=== PATIENT | male | born 1960 | race Caucasian/White ===

== ENCOUNTER 2020-11-18 17:33 | Inpatient (IN) | payer MEDICAID ==
[~2020-11-18] VITALS: Ht 165.1 cm; Wt 95.3 kg
--- NOTE | 2020-11-18 17:50 | NUR ---
Pt triaged and placed in [facility] as there are no ER beds available. Pt is unable to recall his home medications.
--- NOTE | 2020-11-18 18:33 | NUR ---
Pt moved to room 1a.
[2020-11-18] MEDS ORDERED: LORAZEPAM 0.5 MG TABLET PO ONE (19:00)
[2020-11-18] MEDS ORDERED: LORAZEPAM 1 MG TABLET ONE (19:09)
[2020-11-18 19:45] LABS: BASOPHILS % (AUTO) 0.5 % (0.0-2.0); EOSINOPHILS # (AUTO) 0.1 K/uL (0.0-0.7); EOSINOPHILS % (AUTO) 0.7 % (0.0-7.0); HEMATOCRIT 44.1 % (36.7-47.1); HEMOGLOBIN 14.7 g/dL (12.5-16.3); LYMPHOCYTES # (AUTO) 2.2 K/uL (20.0-40.0); LYMPHOCYTES % (AUTO) 24.2 % (20.5-51.5); MEAN CORPUSCULAR HEMOGLOBIN 30.4 uug (23.8-33.4); MEAN CORPUSCULAR HGB CONC 33 g/dL (32.5-36.3); MONOCYTES # (AUTO) 0.6 K/uL (2.0-10.0); MONOCYTES % (AUTO) 6.3 % (0.0-11.0); NEUTROPHILS # (AUTO) 6.3 K/uL (1.8-8.9); NEUTROPHILS % (AUTO) 68.3 % (38.5-71.5); PLATELET COUNT (AUTO) 253 K/uL (152-348); RED BLOOD CELL COUNT(AUTO) 4.85 MIL/uL (4.06-5.63); WHITE BLOOD COUNT (AUTO) 9.2 K/uL (3.6-10.2)
[2020-11-18] MEDS ORDERED: FUROSEMIDE 40 MG/4 ML VIAL IV ONE (19:45)
[2020-11-18 19:54] LABS: CREATININE 1.4 mg/dL (0.6-1.3); POTASSIUM 3.7 mmol/L (3.5-5.1)
--- NOTE | 2020-11-18 20:05 | NUR ---
Dr Hare into eval patient.
[2020-11-18 20:07] LABS: BILIRUBIN,DIRECT 0.2 mg/dL (0.0-0.2); TOTAL PROTEIN, SERUM 8.1 g/dL (6.4-8.2)
[2020-11-18] MEDS ORDERED: FUROSEMIDE 20 MG/2 ML VIAL ONE (20:12)
[2020-11-18] MEDS ORDERED: FUROSEMIDE 20 MG/2 ML VIAL IV ONE (20:15)
--- NOTE | 2020-11-18 20:24 | NUR ---
Analy Oconnor DRAG SEINER into eval patient.
[2020-11-18] MEDS ORDERED: POTASSIUM CHLORIDE 20 MEQ POWDER PACKET PO ONE (20:30)
[2020-11-18] MEDS ORDERED: POTASSIUM CHLORIDE 20 MEQ POWDER PACKET ONE (22:28)
--- NOTE | 2020-11-18 22:45 | NUR ---
[facility] gave authorization to stay in patient.
[2020-11-18] MEDS: APIXABAN 2.5 MG TABLET PO SCH (23:32)
[2020-11-18] MEDS ORDERED: NITROGLYCERIN 0.4 MG/TAB BOTTLE SL PRN (23:45)
--- NOTE | 2020-11-19 00:30 | NUR ---
Transfered to 3rd floor Tele via wheelchair with no distress noted.
--- NOTE | 2020-11-19 00:35 | NUR ---
ADMITTED PATIENT ON TELE FLOOR UNDER THE CARE OF [facility] [employer], PATIENT ALERT ORIENTED, WITH SOB, UNABLE TO LIE FLAT, PATIENT REFUSED OXYGEN THERAPY, AND REFUSED TO ANSWER QUESTION REGARDING MEDICAL HISTORY, IRRITABLE, AND PREFER TO BE LEFT ALONE. PATIENT ORIENTED TO USE THE CALL LIGHT WHEN HE NEEDS ANYTHING. PATIENT ON TELE MONITOR A FIB, AND TACHY 125. CONT TO MONITOR.
--- NOTE | 2020-11-19 02:24 | NUR ---
NOTIFY CESAR PHYSICIAN REQUESTING FOR SLEEPING MEDICATION WITH ORDER.
[2020-11-19] MEDS ORDERED: ZOLPIDEM 5 MG TABLET PO ONE (02:30)
--- NOTE | 2020-11-19 06:58 | NUR ---
PATIENT ALERT ORIENTED, NO CHEST PAIN, BUT SHORT OF BREATH, VS. 119/61, HR 71, OXYGEN SAT 95% ON ROOM AIR. PATIENT STATED ITS NO THE CHEST PAIN, BUT DIFFICULTY BREATHING DUE TO MILD CHF, ENCOURAGED TO STAY IN BED AND SEAT UPRIGHT. PATIENT ON TELE MONITOR A FIB, WITH EPISODE OF PVC. ENDORSED TO NEXT SHIFT.
[2020-11-19 07:03] LABS: BASOPHILS # (AUTO) 0.1 K/uL (0.0-8.0); BASOPHILS % (AUTO) 0.6 % (0.0-2.0); EOSINOPHILS # (AUTO) 0.1 K/uL (0.0-0.7); EOSINOPHILS % (AUTO) 0.9 % (0.0-7.0); HEMATOCRIT 41.8 % (36.7-47.1); HEMOGLOBIN 14.2 g/dL (12.5-16.3); LYMPHOCYTES # (AUTO) 2.5 K/uL (20.0-40.0); LYMPHOCYTES % (AUTO) 27.3 % (20.5-51.5); MEAN CORPUSCULAR HEMOGLOBIN 30.9 uug (23.8-33.4); MEAN CORPUSCULAR HGB CONC 34 g/dL (32.5-36.3); MEAN CORPUSCULAR VOLUME 91.2 fL (73.0-96.2); MONOCYTES # (AUTO) 0.6 K/uL (2.0-10.0); MONOCYTES % (AUTO) 6.2 % (0.0-11.0); PLATELET COUNT (AUTO) 229 K/uL (152-348); RED BLOOD CELL COUNT(AUTO) 4.58 MIL/uL (4.06-5.63); WHITE BLOOD COUNT (AUTO) 9.3 K/uL (3.6-10.2)
[2020-11-19 07:09] LABS: BILIRUBIN,TOTAL 1.5 mg/dL (0.2-1.0); CREATININE 1.5 mg/dL (0.6-1.3); MAGNESIUM 2.4 mg/dL (1.8-2.4); PHOSPHOROUS 3.2 mg/dL (2.5-4.9); POTASSIUM 3.9 mmol/L (3.5-5.1); TOTAL PROTEIN, SERUM 7.7 g/dL (6.4-8.2)
[2020-11-19 07:18] LABS: THYROID STIMULATING HORMONE 1.176 mIU/mL (0.358-3.740)
[2020-11-19] MEDS: APIXABAN 2.5 MG TABLET PO SCH (08:31)
--- NOTE | 2020-11-19 10:40 | NUR ---
SW Note: This SW met with patient to discuss treatment in the hospital. Patient appeared irritable and frustrated with his situation. This SW attempted to educate patient on his condition and refused to listen to this SW.
[2020-11-19] MEDS ORDERED: FUROSEMIDE 20 MG/2 ML VIAL IV ONE ×2 (11:00→12:00)
[2020-11-19 11:04] VITALS: BP 113/72
[2020-11-19] MEDS ORDERED: POTASSIUM CHLORIDE 20 MEQ POWDER PACKET PO ONE (11:45)
[2020-11-19] MEDS ORDERED: METOLAZONE 2.5 MG TABLET PO ONE (12:00)
[2020-11-19 15:19] VITALS: BP 127/67
[2020-11-19] MEDS ORDERED: APIX2.5T PO (16:38)
[2020-11-19] MEDS ORDERED: Nitroglycerin Sl SL (16:38)
--- NOTE | 2020-11-19 18:45 | NUR ---
VSS b/p 119/80 - hr 97 - r/a 93% o2 sat pt non sob. pt comfortable. 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 Pt verbalized understanding. Call light is within reach. Pt agreeable to go home. Discharge instructions given verbalized understanding.
== END 2020-11-19 19:30 | disposition home or self-care (01) | DRG 194 ==
LOC: ER 17:33 → TELE3 23:22
PROVIDERS: ADMIT Registered Nurse; ATTEND Registered Nurse
DX: I50.23 Acute on chronic systolic (congestive) heart failure (principal); I42.0 Dilated cardiomyopathy; I48.20 Chronic atrial fibrillation, unspecified; E66.01 Morbid (severe) obesity due to excess calories; N18.9 Chronic kidney disease, unspecified; F17.210 Nicotine dependence, cigarettes, uncomplicated; Z79.01 Long term (current) use of anticoagulants; Z91.19 Patient's noncompliance with other medical treatment and regimen; Z68.34 Body mass index [BMI] 34.0-34.9, adult; Z71.3 Dietary counseling and surveillance; Z71.6 Tobacco abuse counseling; N17.0 Acute kidney failure with tubular necrosis; N13.9 Obstructive and reflux uropathy, unspecified
CPT/HCPCS: 36415; 70030-TC; 71045; 83735; 84100; 84443; 85025; 85730; 93005; 93307; A4663; G0378; J1940; U0003

== ENCOUNTER 2022-03-19 23:03 | Emergency (ER) | payer MEDICAID ==
[~2022-03-19] VITALS: Ht 162.6 cm; Wt 93.0 kg
[~2022-03-19 23:03] MED LIST: APIX2.5T PO; Nitroglycerin Sl SL
--- NOTE | 2022-03-19 23:19 | NUR ---
Dr. Hammond at bedside for MSE
[2022-03-19] MEDS ORDERED: FURO40TA5 PO (23:44)
[2022-03-19] MEDS ORDERED: LORA-259 PO (23:44)
[2022-03-19] MEDS ORDERED: SACU1TAB PO (23:44)
[2022-03-19] MEDS ORDERED: CARV3.12 PO (23:44)
[2022-03-19] MEDS ORDERED: APIX5TAB PO (23:44)
[2022-03-19] MEDS ORDERED: FUROSEMIDE 20 MG/2 ML VIAL IVP ONE (23:45)
[2022-03-19] MEDS ORDERED: FUROSEMIDE 40 MG/4 ML VIAL ONE (23:50)
[2022-03-20] LABS: HEMATOCRIT 39.4 % (36.7-47.1); MEAN CORPUSCULAR HEMOGLOBIN 30.3 uug (23.8-33.4); MEAN CORPUSCULAR VOLUME 87.6 fL (73.0-96.2); PLATELET COUNT (AUTO) 233 K/uL (152-348)
[2022-03-20 00:03] LABS: CARBON DIOXIDE 30 mmol/L (21-32); CHLORIDE 107 mmol/L (98-107); CREATININE 1.6 mg/dL (0.6-1.3); GLUCOSE 131 mg/dL (74-106); POTASSIUM 4.2 mmol/L (3.5-5.1); UREA NITROGEN, BLOOD 23 mg/dL (7-18)
[2022-03-20 00:16] LABS: ALANINE AMINOTRANSFERASE 19 U/L (16-63); ALKALINE PHOSPHATASE 92 U/L (50-136); ASPARTATE AMINOTRANSFERASE 12 U/L (15-37); BILIRUBIN,DIRECT 0.1 mg/dL (0.0-0.2); BILIRUBIN,TOTAL 0.6 mg/dL (0.2-1.0); TOTAL PROTEIN, SERUM 7.3 g/dL (6.4-8.2)
--- NOTE | 2022-03-20 00:28 | NUR ---
Pt in bed resting. States he has mild SOB on exertion. Able to follow commands. Able to ambulate without assistance.
--- NOTE | 2022-03-20 02:09 | NUR ---
Patient does not wish to proceed with medical care recommended by Dr. Hammond. Patient given information related to possible complications, up to and including , which could occur as a result of leaving the hospital at this time. Patient verbalizes understanding of risks involved due to leaving against medical advice. Patient has signed AMA form. States that he has releived SOB at this time. Able to ambulate without assistance. IV removed.
[2022-03-20 02:13] VITALS: BP 114/60
== END 2022-03-20 02:15 | disposition left against medical advice (07) ==
LOC: ER 23:56
DX: I48.91 Unspecified atrial fibrillation (principal); Z79.01 Long term (current) use of anticoagulants; F17.210 Nicotine dependence, cigarettes, uncomplicated; I50.9 Heart failure, unspecified; J44.9 Chronic obstructive pulmonary disease, unspecified; Z79.899 Other long term (current) drug therapy; R60.0 Localized edema; Z53.29 Procedure and treatment not carried out because of patient's decision for other reasons; Z20.822 Contact with and (suspected) exposure to COVID-19
CPT/HCPCS: 36415; 71045; 80048; 80076; 83880; 84484; 85025; 85730; 87426; 93005; 96374; 99285; J1940; A4663

== ENCOUNTER 2022-04-04 12:02 | Inpatient (IN) | payer MEDICAID ==
[~2022-04-04] VITALS: Ht 172.7 cm; Wt 94.3 kg
[~2022-04-04 12:02] MED LIST changes: -APIX2.5T PO; +APIX5TAB PO; +CARV3.12 PO; +FURO40TA5 PO; +LORA-259 PO; -Nitroglycerin Sl SL; +SACU1TAB PO
[2022-04-04] MEDS ORDERED: FUROSEMIDE 40 MG/4 ML VIAL IV ONE (12:15)
[2022-04-04] MEDS ORDERED: FUROSEMIDE 40 MG/4 ML VIAL ONE (12:18)
[2022-04-04 13:36] LABS: HEMATOCRIT 42.6 % (36.7-47.1); MEAN CORPUSCULAR HEMOGLOBIN 29.6 uug (23.8-33.4); MEAN CORPUSCULAR VOLUME 87.1 fL (73.0-96.2); PLATELET COUNT (AUTO) 237 K/uL (152-348)
--- NOTE | 2022-04-04 13:56 | NUR ---
Pt resting in gurney with no s/s of distress noted. Family at bedside.
[2022-04-04 15:18] LABS: ALANINE AMINOTRANSFERASE 25 U/L (16-63); BILIRUBIN,DIRECT 0.2 mg/dL (0.0-0.2)
--- NOTE | 2022-04-04 16:15 | NUR ---
Pt to be admitted to tele, Dx:CHF. ER admitting notified and state they have to call pt's HMO for auth for admission.
[2022-04-04 16:27] LABS: ALKALINE PHOSPHATASE 95 U/L (50-136); ASPARTATE AMINOTRANSFERASE 20 U/L (15-37); BILIRUBIN,TOTAL 0.9 mg/dL (0.2-1.0); CARBON DIOXIDE 28 mmol/L (21-32); CHLORIDE 100 mmol/L (98-107); POTASSIUM 3.7 mmol/L (3.5-5.1); TOTAL PROTEIN, SERUM 7.6 g/dL (6.4-8.2); UREA NITROGEN, BLOOD 21 mg/dL (7-18)
--- NOTE | 2022-04-04 17:24 | NUR ---
Spoke with Rosalind from [facility], requested information provided via telephone. She spoke with per her request as well.
[2022-04-04 17:44] LABS: *AMPHETAMINE, URINE NEGATIVE (NEGATIVE); *CANNABINOID, URINE NEGATIVE (NEGATIVE); *COCCAINE, URINE NEGATIVE (NEGATIVE); *OPIATE, URINE NEGATIVE (NEGATIVE); *PHENCYCLIDINE SCREEN,URINE NEGATIVE (NEGATIVE)
[2022-04-04 17:47] LABS: CREATININE 1.3 mg/dL (0.6-1.3); GLUCOSE 101 mg/dL (74-106)
--- NOTE | 2022-04-04 18:35 | NUR ---
Pt stated he was going outside to "get some fresh air".
[2022-04-04] MEDS ORDERED: LORAZEPAM 1 MG TABLET PO PRN (18:45)
[2022-04-04] MEDS ORDERED: MAGNESIUM HYDROXIDE 30 ML LIQUID UDC PO PRN (18:45)
[2022-04-04] MEDS ORDERED: ACETAMINOPHEN 325 MG TABLET PO PRN (18:45)
[2022-04-04] MEDS ORDERED: ONDANSETRON 4 MG/2 ML VIAL IV PRN (18:45)
[2022-04-04] MEDS ORDERED: HYDROCODONE/APAP 5-325MG TABLET PO PRN (18:45)
--- NOTE | 2022-04-04 18:57 | NUR ---
Pt has not returned to ER. I looked for the pt in the ER waiting room and outside ER and did not find the pt.
--- NOTE | 2022-04-04 19:02 | NUR ---
Pt returned to ER, back in his room.
--- NOTE | 2022-04-04 19:08 | NUR ---
RECEIVED REPORT FROM JOSIE MORNING SHIFT RN. PT NOTED TO BE IN BED, RESTING COMFORTABLY. NO SOB OR LABORED BREATHING. DENIES ANY PAIN/DISCOMFORT AT THIS TIME.
--- NOTE | 2022-04-04 19:36 | NUR ---
GAVE REPORT TO GUILLERMINA.
--- NOTE | 2022-04-04 20:00 | NUR ---
Patient arrived in the unit via wheelchair. Awake, alert x 4, in no apparent distress. Transfer self from WC to bed without difficulty. Able to move all extremities freely. Safety measures and fall precaution initiated. Routine admission care done. Plan of care initiated.
[2022-04-04 20:15] VITALS: BP 109/60
[2022-04-04] MEDS: FUROSEMIDE 40 MG/4 ML VIAL IV SCH ×2 (21:00→21:26)
[2022-04-05] VITALS: BP 132/52
[2022-04-05 04:06] VITALS: BP 135/87
[2022-04-05] MEDS ORDERED: PANTOPRAZOLE SODIUM 40 MG TABLET.DR PO SCH (07:00)
[2022-04-05 07:06] LABS: HEMATOCRIT 41.1 % (36.7-47.1); MEAN CORPUSCULAR VOLUME 86.1 fL (73.0-96.2); PLATELET COUNT (AUTO) 228 K/uL (152-348)
[2022-04-05 07:33] LABS: CREATININE 1.5 mg/dL (0.6-1.3); MAGNESIUM 2.2 mg/dL (1.8-2.4); PHOSPHOROUS 4.2 mg/dL (2.5-4.9); POTASSIUM 3.6 mmol/L (3.5-5.1)
--- NOTE | 2022-04-05 08:00 | NUR ---
AWAKE ALERT AND ORIENTED X3, DENIES CHEST PAIN. SR ON MONITOR. SEEN BY STAFFING ASSOCIATE SEE NOTES
[2022-04-05] MEDS ORDERED: VALSARTAN 80 MG TABLET PO SCH (09:00)
[2022-04-05] MEDS ORDERED: APIXABAN 5 MG TABLET PO SCH (09:00)
[2022-04-05] MEDS ORDERED: CARVEDILOL 3.125 MG TABLET PO SCH (09:00)
[2022-04-05] MEDS ORDERED: ESCITALOPRAM OXALATE 10 MG TABLET PO SCH (09:00)
[2022-04-05] MEDS: FUROSEMIDE 40 MG/4 ML VIAL IV SCH (09:20)
[2022-04-05 11:38] VITALS: BP 111/70
--- NOTE | 2022-04-05 12:30 | NUR ---
SEEN BY HOSPITALIST DISCUSSED PLAN OF CARE WITH DISCHARGE ORDER
[2022-04-05] MEDS ORDERED: ESCI-9 PO (13:09)
[2022-04-05] MEDS ORDERED: APIX5TAB PO (13:09)
--- NOTE | 2022-04-05 14:00 | NUR ---
DISCHARGED HOME STABLE PICKED UP BY . MEDICATION AND FOLLOW-UP INSTRUCTION GIVEN
== END 2022-04-05 14:00 | disposition home or self-care (01) | DRG 194 ==
LOC: ER 12:02 → TELE3 19:47
PROVIDERS: ADMIT Internal Medicine; ATTEND Internal Medicine
DX: I13.0 Hypertensive heart and chronic kidney disease with heart failure and stage 1 through stage 4 chronic kidney disease, or unspecified chronic kidney disease (principal); N17.0 Acute kidney failure with tubular necrosis; I50.23 Acute on chronic systolic (congestive) heart failure; I42.0 Dilated cardiomyopathy; F17.210 Nicotine dependence, cigarettes, uncomplicated; I48.20 Chronic atrial fibrillation, unspecified; E66.9 Obesity, unspecified; F41.9 Anxiety disorder, unspecified; G47.00 Insomnia, unspecified; J44.9 Chronic obstructive pulmonary disease, unspecified; Z20.822 Contact with and (suspected) exposure to COVID-19; Z79.01 Long term (current) use of anticoagulants; Z68.31 Body mass index [BMI] 31.0-31.9, adult; N18.2 Chronic kidney disease, stage 2 (mild); Z79.899 Other long term (current) drug therapy
CPT/HCPCS: 36415; 71045; 83735; 84100; 84484; 85025; 85730; 93005; 97161; A4663; G0378; J1940